=== PATIENT | female | born 1990 | race Caucasian/White ===

== ENCOUNTER 2018-01-29 10:32 | Inpatient (IN) ==
[2018-01-29] MEDS ORDERED: CITRIC ACID/SODIUM CITRATE 30ml PO ONE (10:33)
[2018-01-29] MEDS ORDERED: NOZIN NASAL SWAB NAS ONE ×3 (10:33→14:42)
[2018-01-29] MEDS ORDERED: CEFAZOLIN PREMIX (MC ONLY) 2 GM/50 ML BAG IV ONE (10:33)
[2018-01-29] MEDS ORDERED: FAMOTIDINE PB 20 MG/50 ML BAG IV ONE (10:33)
[2018-01-29] MEDS: LR 1,000 ML IV SCH ×4 (10:51→16:05)
[2018-01-29 11:04] VITALS: BMI 27.1
--- NOTE | 2018-01-29 11:30 | Anesthesia Preoperative Report ---
Anesthesia Epidural/Spinal Rec - Date and Time Date: 01/29/18 Preoperative Diagnosis: previous c section Procedure: Plan: Spinal - Vital Signs Vital Signs: Temperature 97.4 F 01/29/18 11:08 Pulse Rate 70 01/29/18 11:08 Respiratory Rate 18 01/29/18 11:08 Blood Pressure 132/83 01/29/18 11:08 Pulse Oximetry 98 01/29/18 11:08 /Para: P:1 - Medictaions & Allergies Inpatient Medications: Current Medications Lactated Ringer's (Lactated Ringers) 1,000 mls @ 999 mls/hr IV .Q1H1M MICHELE Isopropyl Alcohol (Nozin Nasal Swab) 1 each SINGH 0600,1400,2200 MICHELE Allergies/Adverse Reactions: Allergies Allergy/AdvReac Type Severity Reaction Status Date / Time No Known Allergies Allergy Verified 01/29/18 11:07 - Home Medications Home Medications: Home Medications Medication Instructions Recorded Confirmed Type Docusate Sodium [Colace] 1 cap PO BID #0 cap 12/22/15 01/29/18 History Pnv No.95/Ferrous Fum/Folic AC 1 tab PO DAILY #0 12/22/15 01/29/18 History [ Caplet] raNITIdine HCl [Zantac] 150 mg PO BID 01/11/18 01/29/18 History - Medical History Other History: Reports: Now - Surgical History Reproductive Surgery/Treatment: Reports: Section Anesthesia Reactions: None Hx Family Anesthesia Reaction: No History of Motion Sickness: No - Social History Smoking Status: Never smoker Substance Use Type: does not use Alcohol Intake Frequency: does not drink - Pertinent Findings Lab Data: CBC and BMP 01/29/18 10:52 EKG Rhythm: Normal Sinus Rhythm - Physical Exam Respiratory Exam: lungs clear Cardiovascular Exam: regular rate and rhythm, no murmur - Airway Assessment Mallampati Score: II TMD: 3 Fingerbreadths Neck Extension: good Overall Assessment: no airway concerns - ASA ASA Score: 2 - Discussion Discussion: Discussed risks/options/alternatives of anesthesia and questions answered. Patient consents. Nursing pain assessment noted. Anesthesia Discussion: spouse Attestation Statement: Prior to the delivery of any anesthetic medication, I examined the patient, developed the plan, obtained the patient's consent and discussed the risk and benefits of the procedure with the patient/guardian.
[2018-01-29] MEDS ORDERED: SALINE FLUSH 10ml SYRINGE ONE (11:49)
[2018-01-29] MEDS ORDERED: PHENYLEPHRINE INJ 10 MG/ML VIAL IV ONE (11:49)
[2018-01-29] MEDS ORDERED: EPHEDRINE 50mg/ml INJECTION ONE (11:49)
[2018-01-29] MEDS ORDERED: FentaNYL 100 MCG/2 ML INJECTION ONE ×2 (11:58→12:58)
[2018-01-29] MEDS ORDERED: MORPHINE SULFATE PF 5mg/10ml INJ (Duramorph) ONE (11:59)
[2018-01-29] MEDS ORDERED: BUPIVACAINE 0.75%/DEXTROSE 8.5% SPINAL 2 ML AMPULE IJ ONE (12:05)
[2018-01-29] MEDS ORDERED: EPINEPHrine 1mg/ml (1:1000) vial ONE (12:06)
[2018-01-29] MEDS: OXYTOCIN DRIP 30 UNIT/500 ML ML IV SCH ×2 (12:40→18:15)
[2018-01-29] MEDS: D5LR 1,000 ML IV SCH (12:40)
[2018-01-29] MEDS ORDERED: ONDANSETRON 4 MG/2 ML INJECTION ONE (12:59)
[2018-01-29] MEDS ORDERED: OXYTOCIN BOLUS BAG 30 UNIT/500 ML ML IV SCH (13:00)
[2018-01-29] MEDS ORDERED: NOZIN NASAL SWAB NAS SCH (14:00)
[2018-01-29] MEDS ORDERED: HYDROCORTISONE 2.5% CREAM 30gm RECTALLY PRN (14:42)
[2018-01-29] MEDS ORDERED: ONDANSETRON 4 MG/2 ML INJECTION IVP PRN (14:42)
[2018-01-29] MEDS ORDERED: DiphenhydrAMINE 25 MG CAPSULE PO PRN (14:42)
[2018-01-29] MEDS ORDERED: SIMETHICONE 80 MG CHEWABLE TABLET PO PRN (14:42)
[2018-01-29] MEDS ORDERED: SALINE FLUSH 10ml SYRINGE IV PRN (14:42)
[2018-01-29] MEDS ORDERED: CALCIUM CARBONATE Chewable 500mg TABLET PO PRN (14:42)
[2018-01-29] MEDS ORDERED: ACETAMINOPHEN 500 MG TABLET PO PRN (14:42)
[2018-01-29] MEDS: HYDROCODONE/APAP 5mg/325mg TABLET PO PRN ×4 (15:15→23:21)
[2018-01-29] MEDS: SIMETHICONE 80 MG CHEWABLE TABLET PO SCH ×3 (15:15→20:41)
[2018-01-29] MEDS: IBUPROFEN 800 MG TABLET PO SCH ×2 (15:16→23:22)
--- NOTE | 2018-01-29 15:29 | Operative Note ---
DATE OF OPERATION 01/29/2018 PREOPERATIVE DIAGNOSIS Patient is a 27-year-old G2, P1 at 39 weeks 0 days estimated gestational age who presented for repeat low transverse section. POSTOPERATIVE DIAGNOSIS Patient is a 27-year-old G2, P1 at 39 weeks 0 days estimated gestational age who presented for repeat low transverse section, delivered. PROCEDURE Repeat low transverse section. SURGEON Clarice Michele MD ASSISTANTS Alfred Thompson, DO Lupe Zaldivar, 3 ANESTHESIA Spinal COMPLICATIONS None EBL 600 mL IV FLUIDS 1400 mL of LR URINE OUTPUT 100 mL of clear urine at the end of the procedure. INDICATIONS This is a 27-year-old G2, P1 at 39 weeks estimated gestational age who presented for repeat low transverse section after declined . FINDINGS Male , cephalic presentation. Apgars . Weight 3062 grams or 6 pounds 12 ounces. Normal uterus, tubes and ovaries. DESCRIPTION OF PROCEDURE After written and verbal informed consent, patient was taken to the OR where spinal anesthesia was placed and found to be adequate. She was then prepped and draped in the usual sterile fashion and placed in the dorsal supine position with a left lateral tilt. A Pfannenstiel skin incision was then made using a scalpel and carried through to the underlying layer of fascia. Fascia was then incised in the midline and the incision was extended laterally using Mendez scissors. Superior aspect of the fascial incision was then clamped with Jillian clamps x2, elevated and the underlying rectus muscles were dissected off bluntly. Attention was then turned to the inferior aspect of the incision which was in a similar fashion, grasped and tended up with Jillian clamps x2 and the rectus muscles were identified and dissected off bluntly and sharply. Rectus muscles were then in the midline and the peritoneum was identified, tented up and entered sharply with Metzenbaum scissors. Peritoneal incision was then extended superiorly and inferiorly with good visualization of the bladder. Bladder blade was then inserted and the vesicouterine peritoneum was identified. It was grasped with pickups and entered sharply using Metzenbaum scissors. Incision was then extended laterally and a bladder flap was created digitally. Bladder blade was then reinserted and the lower uterine segment was incised in a transverse fashion using a scalpel. The lower uterine segment was very thin. Uterine incision was then extended laterally using manual traction. The bladder blade was removed and the infant's head was delivered atraumatically. The nose and mouth were suctioned using a bulb suction. Infant was handed off to the resuscitation team. Placenta was then expressed and the uterus was exteriorized and cleared of all clots and debris. Uterine incision was repaired with 0 Monocryl in a running locking fashion. Bladder flap was repaired using 3-0 Vicryl in a running stitch and the uterus was returned to the abdomen. Gutters were cleared of all clots and debris and the peritoneum was closed using 2-0 Vicryl. Fascia was then reapproximated using 0 Vicryl in a running fashion. The skin was closed using 3-0 undyed Vicryl in a subcuticular stitch. Prineo by Dermabond was then placed over the incision. Patient received 2 grams of Ancef prior to the procedure. She tolerated the procedure well. Sponge, lap and needle counts were correct x2. Patient was taken to the recovery room in stable condition where she and baby are doing well at the time of this dictation. MARIANO
--- NOTE | 2018-01-29 15:45 | Anesthesia Postoperative Note ---
- Date and Time Date: 01/29/18 Time: 15:45 - Status Patient Participated in Evaluation: Patient Participated in Person Vital Signs: Temperature 97.6 F 01/29/18 15:00 Pulse Rate 51 L 01/29/18 15:00 Respiratory Rate 01/29/18 15:00 Blood Pressure 121/60 01/29/18 15:00 Pulse Oximetry 98 01/29/18 15:00 Respiratory Function: Airway Patent EKG: Sinus Rhythm Mental Status: Alert and Oriented Pain Intensity: 0 Hydration: Taking PO Fluids Nausea/Vomiting: None Complications During Recover: None Apparent - Follow-Up Instructions Instructions: Per Surgeon
[2018-01-29] MEDS ORDERED: NALOXONE 2 MG/2 ML INJECTION PFS IVP PRN (15:46)
[2018-01-29] MEDS: NOZIN NASAL SWAB NAS SCH ×2 (16:07→22:23)
[2018-01-30] MEDS: D5LR 1,000 ML IV SCH (02:42)
[2018-01-30] MEDS: HYDROCODONE/APAP 5mg/325mg TABLET PO PRN ×4 (03:12→20:47)
[2018-01-30] MEDS: IBUPROFEN 800 MG TABLET PO SCH ×2 (07:26→16:26)
[2018-01-30] MEDS: SIMETHICONE 80 MG CHEWABLE TABLET PO SCH ×3 (09:02→20:00)
[2018-01-30] MEDS: DOCUSATE CALCIUM 240 MG CAPSULE PO SCH (09:02)
--- NOTE | 2018-01-30 11:06 | OB/GYN Progress Note ---
OB-PP Progress Note - General PPD1 POD:: POD1 Maternal Group B Strep: Positive Maternal Rh: positive Maternal Rubella Status: Immune - Subjective Date: 01/30/18 Lochia: Minimal Pain: controlled Voiding: voiding Nausea or Vomiting Present: No - Objective Vital Signs: Last Vital Signs Temp 97.8 F 01/30/18 06:00 Pulse 54 L 01/30/18 06:00 Resp 18 01/30/18 07:25 BP 123/66 01/30/18 06:00 Pulse Ox 97 01/30/18 06:00 Urine Output: good General: alert and oriented Abdomen: fundus firm, non-tender Incision: dry, dressed Extremities: non-tender Edema: none Laboratory: Laboratory Results - last 24 hr 01/29/18 01/29/18 10:52 18:42 WBC 9.6 RBC 3.81 L Hgb 12.0 D Hct 34.4 L D MCV 90.3 MCH 31.5 MCHC 34.9 RDW Std Deviation 42.1 Plt Count 126 L MPV 10.9 Blood Type O Positive Antibody Screen Negative - Assessment Assessment: SP, Repeat C/S - Plan Plan: routine care Expected date of discharge: 01/31/18
[2018-01-30] MEDS: NOZIN NASAL SWAB NAS SCH (14:30)
[2018-01-31] MEDS: IBUPROFEN 800 MG TABLET PO SCH ×2 (00:03→08:14)
[2018-01-31] MEDS: HYDROCODONE/APAP 5mg/325mg TABLET PO PRN ×3 (03:52→12:22)
[2018-01-31 05:08] VITALS: RESP 16; O2SAT 100
[2018-01-31] MEDS: DOCUSATE CALCIUM 240 MG CAPSULE PO SCH (08:14)
[2018-01-31] MEDS: SIMETHICONE 80 MG CHEWABLE TABLET PO SCH ×3 (08:16→12:23)
[2018-01-31 08:56] VITALS: BP 123/65; PULSE 62; TEMP 98.3
[2018-01-31] MEDS: NOZIN NASAL SWAB NAS SCH ×2 (08:56→08:57)
== END 2018-01-31 14:45 | disposition home or self-care (01) | DRG 766 ==
LOC: MC 10:32
PROVIDERS: ADMIT Family Medicine; ATTEND Family Medicine